=== PATIENT | female | born 1970 | race Caucasian/White ===

== ENCOUNTER 2022-10-12 13:51 | Emergency (ER) | payer OTHER ==
[2022-10-12] MEDS ORDERED: AMOX/K CLAV875 M1 PO (16:19)
[2022-10-12 16:29] VITALS: BP 128/89
== END 2022-10-12 16:48 | disposition home or self-care (01) | DRG 605 ==
LOC: ED 13:51
DX: S81.851A Open bite, right lower leg, initial encounter (principal); W54.0XXA Bitten by dog, initial encounter